=== PATIENT | female | born 1950 | race Caucasian/White ===

== ENCOUNTER 2018-03-04 06:22 | Observation (INO) ==
[2018-03-04 06:41] LABS: Baso % (Auto) 0.6 % (0.0-2.0); Eos # (Auto) 0.1 th/mm3 (0.0-0.4); Hematocrit 40.9 % (35.0-46.0); Hemoglobin 13.9 gm/dL (11.6-15.3); Lymph # (Auto) 1.3 th/mm3 (1.0-4.8); Lymph % (Auto) 32.5 % (9.0-44.0); Mean Corpuscular HGB Conc 34.1 % (32.0-36.0); Mean Corpuscular Hemoglobin 32.5 pg (27.0-34.0); Mean Corpuscular Volume 95.4 fL (80.0-100.0); Mono # (Auto) 0.4 th/mm3 (0.0-0.9); Mono % (Auto) 9.5 % (0.0-8.0); Neut # (Auto) 2.3 th/mm3 (1.8-7.7); Neut % (Auto) 55.4 % (16.0-70.0); Platelet Count 245 th/mm3 (150-450); Red Blood Count 4.29 mil/mm3 (4.00-5.30); Red Cell Distribution Width 12.4 % (11.6-17.2); White Blood Count 4.1 th/mm3 (4.0-11.0)
--- NOTE | 2018-03-04 06:41 | ED ---
HPI General Chief Complaint: Chest Pain Stated Complaint: chest pain Time Seen by Provider: 03/04/18 06:28 Source: patient Mode of arrival: ambulatory Limitations: no limitations History of Present Illness HPI narrative: 67-year-old female presents to the emergency department by private transportation the care of her spouse for complaint of retrosternal chest pain dull and aching with heaviness radiating into her back with sharp mid scapular pain. No neck jaw shoulder arm pain. Patient had associated shortness of breath sweats and nausea. Patient denies vomiting or abdominal pain. 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 Patient no longer smokes cigarettes does have history of COPD after 36 years of tobacco use. No report of premature onset heart disease in her family. Family history of PE and cancer. MD complaint: chest pain STEMI Alert: No Onset (ago): hour(s) Duration: constant Onset: during rest Pain location: substernal Severity: severe Severity scale (1-10): 7 Quality: tightness, aching and heaviness Pain radiation: back (sharp) Relieving factors: nothing and other (alkaseltzer) Exacerbating factors: exertion and inspiration Context: other (none) Associated symptoms: nausea, diaphoresis and dyspnea Treatments prior to arrival chest pain: other (fay-seltzer) Related Data On Oral Contraceptives: No Home Medications Medication Instructions Recorded Confirmed biotin 10,000 mcg PO DAILY 03/04/18 03/04/18 budesonide-formoterol [Symbicort] 2 puff INHALATION BID 03/04/18 03/04/18 bupropion HCl [Wellbutrin SR] 150 mg PO BID 03/04/18 03/04/18 losartan 100 mg PO DAILY 03/04/18 03/04/18 pravastatin [Pravachol] 40 mg PO DAILY 03/04/18 03/04/18 triamterene-hydrochlorothiazid 1 cap PO DAILY 03/04/18 03/04/18 Allergies Allergy/AdvReac Type Severity Reaction Status Date / Time naproxen Allergy Intermediate Facial Verified 03/04/18 06:40 Swelling Review of Systems ROS: all other systems reviewed are negative PMFSH History History Provided By: Patient (Brain bleed 2003 without surgical intervention pulmonary embolism 1978 COPD associated with previous tobacco use hypertension dyslipidemia) Medical History Medical History Brain bleed (Acute) COPD (chronic obstructive pulmonary disease) (Acute) Hypertension (Acute) Pulmonary embolism (Acute) Social History Social History Substance History: No History of Abuse Smoking Status: Former smoker Tobacco Type: Cigarettes How Often Do You Have a Drink Containing Alcohol: Never Recent Travel in [facility] within the Last 8 Weeks: No Recent Out of Country Travel within the Last 8 Weeks: No Exam Narrative Exam Narrative: GENERAL: Well-nourished, well-developed patient. In apparent discomfort with shortness of breath no stridor or hoarseness; GCS 15. SKIN: Focused skin assessment warm/dry. HEAD: Normocephalic. EYES: No scleral icterus. No injection or drainage. NECK: Supple, trachea midline. No JVD or lymphadenopathy. CARDIOVASCULAR: Regular rate and rhythm without murmurs, gallops, or rubs. Bilateral radial and dorsalis pedis pulses 2+ to palpation. RESPIRATORY: Breath sounds equal bilaterally. No accessory muscle use. GASTROINTESTINAL: Abdomen soft, mild epigastric tenderness to direct palpation without guarding or rebound, nondistended. No palpable pulsatile mass. MUSCULOSKELETAL: No cyanosis, or edema. BACK: Nontender without obvious deformity. No CVA tenderness. Course Initial Documented Vital Signs Temperature 98.1 F 03/04/18 06:24 Pulse Rate 81 03/04/18 06:24 Respiratory Rate 18 03/04/18 06:24 Blood Pressure 135/88 03/04/18 06:24 Pulse Oximetry 97 03/04/18 06:24 Last Documented Vital Signs Temperature 98.1 F 03/04/18 06:24 Pulse Rate 72 03/04/18 08:27 Respiratory Rate 16 03/04/18 08:27 Blood Pressure 107/60 03/04/18 08:27 Pulse Oximetry 94 L 03/04/18 08:27 Sign Out Sign Out Data: Patient Sign Out occurred on 03/04/18 at 08:10. Patient's care was discussed, and care was transferred from Sara Vargas MD to Elizabeth Sánchez. Sign Out Comment: care signed over to Dr Sánchez 67 f cp to midscapular pain sob sweats nausea 7/10 down to 4/10 after sl ntg x 3 CTA t/a ordered trop ck pending --will need admit; card risk prior tobacco htn high cholesterol also prior 1977 pe and 2003 posterior ICH Last updated by Sara Vargas MD at 03/04/18 07:01 Post-Handoff Eval: Received patient in signout, patient currently cp free. 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 I did review all findings as well as no findings with the patient in detail, patient is currently chest pain-free while in the emergency room, plan to admit her to the hospital for ACS rule out. 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 Sutton. case reviewed with Dr. Antonio Viramontes who accepts pt to service Medical Decision Making MDM Narrative Medical decision making narrative: 67-year-old female presents to the emergency department for complaint of severe retrosternal chest pain with heaviness and tightness associated with shortness of breath and sweats with nausea and referred pain to the mid back sharp in nature unable to obtain symptom relief after taking Fay-Bonham feels like indigestion. Cardiac risk factors female age 67 hypertension dyslipidemia remote tobaccoism Patient placed immediately on personnel monitor with continuous pulse oximetry IV access obtain EKG performed which is non-normal sinus rhythm rate of [address] elevation no acute injury pattern no ectopy artifact present at baseline; patient given bolus of normal saline aspirin weight-based 162 mg patient has allergy to Naprosyn but can take aspirin and took Fay-Bonham prior to arrival to the emergency department. Patient also ordered sublingual nitroglycerin to be administered 0.4 mg every 5 minutes as needed for chest pain and to hold for systolic pressure less than or equal to 100 mmHg or if pain -free. Will obtain LFTs and lipase as well as cardiac enzymes. Will monitor closely for patient's response to nitroglycerin and administer as needed antiemetic and possible narcotic pain medication for symptom relief. Right arm blood pressure 127/62 left arm blood pressure 140/77 Medical Screen Exam Complete: Yes Emergency Medical Condition: Yes Differential Diagnosis Differential Diagnosis: Chest pain ACS myocardial infarction aortic dissection aneurysm pulmonary embolism cholecystitis pancreatitis peptic ulcer disease perforated viscus Medical Records Medical records reviewed: Yes I reviewed the patient's medical records. Lab Data Result diagrams: 03/04/18 06:30 03/04/18 06:30 Lab Results 03/04/18 03/04/18 03/04/18 Range/Units 06:30 06:30 06:30 CBC w Diff Auto diff final WBC 4.1 (4.0-11.0) th/mm3 RBC 4.29 (4.00-5.30) mil/mm3 Hgb 13.9 (11.6-15.3) gm/dL Hct 40.9 (35.0-46.0) % MCV 95.4 (80.0-100.0) fL MCH 32.5 (27.0-34.0) pg MCHC 34.1 (32.0-36.0) % RDW 12.4 (11.6-17.2) % Plt Count 245 (150-450) th/mm3 MPV 7.0 (7.0-11.0) fL Neut % (Auto) 55.4 (16.0-70.0) % Lymph % (Auto) 32.5 (9.0-44.0) % Howell % (Auto) 9.5 H (0.0-8.0) % Eos % (Auto) 2.0 (0.0-4.0) % Baso % (Auto) 0.6 (0.0-2.0) % Neut # (Auto) 2.3 (1.8-7.7) th/mm3 Lymph # (Auto) 1.3 (1.0-4.8) th/mm3 Howell # (Auto) 0.4 (0.0-0.9) th/mm3 Eos # (Auto) 0.1 (0.0-0.4) th/mm3 Baso # (Auto) 0.0 (0.0-0.2) th/mm3 WBC Differential . Differential Comment . PT 10.0 (9.8-11.6) sec INR 1.0 Ratio APTT 22.9 L (24.3-30.1) sec Sodium (136-145) meq/L Potassium (3.5-5.1) meq/L Chloride (98-107) meq/L Carbon Dioxide (21.0-32.0) meq/L Anion Gap (5-15) meq/L BUN (7-18) mg/dL Creatinine (0.50-1.00) mg/dL Estimated GFR (>89) mL/min POC Glucose (68-110) mg/dl Random Glucose (74-106) mg/dL Calcium (8.5-10.1) mg/dL Magnesium (1.5-2.5) mg/dL Total Bilirubin (0.2-1.0) mg/dL AST (15-37) U/L ALT (10-53) U/L Alkaline Phosphatase (45-117) U/L Total Creatine Kinase (26-192) U/L CK-MB (CK-2) (0.5-3.6) ng/mL Troponin I (0.02-0.05) ng/mL Total Protein (6.4-8.2) g/dL Albumin (3.4-5.0) g/dL Lipase 214 (73-393) U/L Blood Type Blood Type Recheck Antibody Screen 03/04/18 03/04/18 03/04/18 Range/Units 06:30 06:45 06:55 CBC w Diff WBC (4.0-11.0) th/mm3 RBC (4.00-5.30) mil/mm3 Hgb (11.6-15.3) gm/dL Hct (35.0-46.0) % MCV (80.0-100.0) fL MCH (27.0-34.0) pg MCHC (32.0-36.0) % RDW (11.6-17.2) % Plt Count (150-450) th/mm3 MPV (7.0-11.0) fL Neut % (Auto) (16.0-70.0) % Lymph % (Auto) (9.0-44.0) % Howell % (Auto) (0.0-8.0) % Eos % (Auto) (0.0-4.0) % Baso % (Auto) (0.0-2.0) % Neut # (Auto) (1.8-7.7) th/mm3 Lymph # (Auto) (1.0-4.8) th/mm3 Howell # (Auto) (0.0-0.9) th/mm3 Eos # (Auto) (0.0-0.4) th/mm3 Baso # (Auto) (0.0-0.2) th/mm3 WBC Differential Differential Comment PT (9.8-11.6) sec INR Ratio APTT (24.3-30.1) sec Sodium 137 (136-145) meq/L Potassium 4.0 (3.5-5.1) meq/L Chloride 101 (98-107) meq/L Carbon Dioxide 28.3 (21.0-32.0) meq/L Anion Gap 8 (5-15) meq/L BUN 18 (7-18) mg/dL Creatinine 0.88 (0.50-1.00) mg/dL Estimated GFR 64 L (>89) mL/min POC Glucose 116 H (68-110) mg/dl Random Glucose 100 (74-106) mg/dL Calcium 8.4 L (8.5-10.1) mg/dL Magnesium 2.0 (1.5-2.5) mg/dL Total Bilirubin 0.2 (0.2-1.0) mg/dL AST 21 (15-37) U/L ALT 29 (10-53) U/L Alkaline Phosphatase 56 (45-117) U/L Total Creatine Kinase 104 (26-192) U/L CK-MB (CK-2) 1.7 (0.5-3.6) ng/mL Troponin I Less than 0.02 L (0.02-0.05) ng/mL Total Protein 7.1 (6.4-8.2) g/dL Albumin 3.7 (3.4-5.0) g/dL Lipase (73-393) U/L Blood Type B Positive Blood Type Recheck Required Antibody Screen Negative Imaging Data Radiologist's impression: Chest X-Ray 03/04/18 06:29 CONCLUSION: COPD Left hilar granulomatous calcification No evidence of acute process. Thoracic Aorta CT 03/04/18 06:54 CONCLUSION: 1. No evidence of thoracoabdominal aortic aneurysm or dissection. 2. Moderate calcified plaque in the infrarenal abdominal aorta. 3. 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 No other significant vascular abnormality. 5. No evidence of acute cardiopulmonary process. 6. Normal appearing soft tissue structures in the abdomen and pelvis. ECG Data EKG Prior to Arrival: No Attestation: I personally reviewed and interpreted this ECG as follows: Prior ECG tracings: not available for review Interpretation: EKG normal sinus rhythm rate 80 normal axis and intervals no acute ST elevation or injury pattern change artifact is present at baseline Discharge Plan Discharge Disposition Patient Disposition: 30 Still Patient Discharge Condition Condition: Stable Discharge Details Diagnosis: Chest pain Physicians Team ED Provider: Elizabeth Sánchez Primary Care Provider: Raine Glynn Rxs /Orders / Referrals /Forms Prescriptions: No Action bupropion HCl [Wellbutrin SR] 150 mg Tablet Extended Release 12 Hr 150 mg PO BID RF: 0 pravastatin [Pravachol] 40 mg Tablet 40 mg PO DAILY RF: 0 triamterene-hydrochlorothiazid 37.5-25 mg Capsule 1 cap PO DAILY RF: 0 losartan 100 mg Tablet 100 mg PO DAILY RF: 0 budesonide-formoterol [Symbicort] 80-4.5 mcg/actuation Hfa Aerosol Inhaler 2 puff INHALATION BID RF: 0 biotin 5,000 mcg Tablet,Disintegrating 10,000 mcg PO DAILY RF: 0 Discharge Instructions Patient Printed Instructions: Chest Pain (ED) Status ED Status: With Doctor
[2018-03-04] MEDS ORDERED: Pantoprazole Inj 40 MG Vial IV.PUSH ONE (06:44)
[2018-03-04] MEDS ORDERED: Morphine Inj 4 MG/ML Vial IV.PUSH ONE (06:48)
[2018-03-04 06:49] LABS: Chloride 101 meq/L (98-107); Sodium 137 meq/L (136-145)
[2018-03-04 06:52] LABS: Calcium 8.4 mg/dL (8.5-10.1)
[2018-03-04 06:53] LABS: Activated Partial Thrombo Time 22.9 sec (24.3-30.1); Albumin 3.7 g/dL (3.4-5.0); Anion Gap 8 meq/L (5-15); Blood Urea Nitrogen 18 mg/dL (7-18); Carbon Dioxide 28.3 meq/L (21.0-32.0); Glucose,Random 100 mg/dL (74-106)
[2018-03-04 06:56] LABS: Alanine Aminotransferase 29 U/L (10-53); Aspartate Aminotransferase 21 U/L (15-37); Glomerular Filtration Rate 64 mL/min (>89)
[2018-03-04 06:58] LABS: Total Protein 7.1 g/dL (6.4-8.2)
[2018-03-04 06:59] LABS: Alkaline Phosphatase 56 U/L (45-117); Creatine Kinase 104 U/L (26-192)
[2018-03-04] MEDS ORDERED: Sodium Chlor 0.9% Inj 500 ML IV.SIG SCH (07:00)
[2018-03-04 07:11] LABS: Creatine Kinase MB 1.7 ng/mL (0.5-3.6)
--- NOTE | 2018-03-04 07:13 | XR ---
EXAM DATE: 03/04/2018 7:10 AM EDT AGE/SEX: 67 years / Female INDICATIONS: Chest pain. CLINICAL DATA: This is the patient's initial encounter. Patient reports that signs and symptoms have been present for 1 day and indicates a pain score of 3/10. MEDICAL/SURGICAL HISTORY: Hypertension. Chronic obstructive pulmonary disease. None. COMPARISON: No prior exams available for comparison. FINDINGS: Lungs are hyperaerated. There is no evidence of acute airspace disease, suspicious nodular densities or effusions. Left hilar gabby calcification is noted. Heart is within normal limits in size. Osseous structures are intact. CONCLUSION: COPD Left hilar granulomatous calcification No evidence of acute process. Electronically signed by: Eric Romano MD 03/04/2018 7:12 AM EDT
--- NOTE | 2018-03-04 07:46 | ECG ---
Date Performed: 03/04/2018 Time Performed: 06:22:46 PTAGE: 67 years EKG: Sinus rhythm NORMAL ECG NO PREVIOUS TRACING DOCTOR: Julio Cesar Boone Interpretating Date/Time 03/04/2018 07:43:46
--- NOTE | 2018-03-04 08:03 | CT ---
EXAM DATE: 03/04/2018 7:47 AM EDT AGE/SEX: 67 years / Female INDICATIONS: Retrosternal chest pain. CLINICAL DATA: This is the patient's initial encounter. Patient reports that signs and symptoms have been present for 1 day and indicates a pain score of 4/10. MEDICAL/SURGICAL HISTORY: Chronic obstructive pulmonary disease. Hypertension. Pulmonary embolism. None. RADIATION DOSE: 15.26 CTDI (mGy) COMPARISON: No prior exams available for comparison. TECHNIQUE: Volumetric scanning was performed using a multi-row detector CT scanner during bolus infu latrell of 90 ml Omnipaque 350 (iohexol) nonionic water-soluble contrast as a single exam dose. The da ta was post processed with a variety of visualization algorithms including full volume maximum intens ity projection, multi-planar sliding thin slab reformation, curved planar reformation, and surface re ndering techniques. Using automated exposure control and adjustment of the mA and/or kV according to patient size, radiation dose was kept as low as reasonably achievable to obtain optimal diagnostic q uality images. DICOM format image data is available electronically for review and comparison. FINDINGS: Lungs: There is no consolidation or pneumothorax. No concerning pulmonary nodule is visualized. No pleural fluid is present. Calcified granuloma is identified in the left lower lobe. Mediastinum: Calcified lymph nodes are seen in the left hilum. No abnormally enlarged lymph nodes by CT criteria. No axillary or other hilar abnormalities are identified. Abdomen: The liver and spleen are free of focal defects. The gallbladder and pancreas demonstrate no abnormality. The adrenal glands are normal. The kidneys demonstrate no evidence of solid renal mass or hydronephrosis. No free fluid or abdominal masses are identified. No para-aortic adenopathy is see n. Pelvis: No evidence of free fluid or pelvic mass. No abnormally enlarged inguinal or retroperitoneal lymph nodes are present. The bladder is unremarkable. Thoracic Aorta: The thoracic aortic root is normal with normal branching of the great vessels. Ther e is no evidence of aneurysm or dissection. Abdominal Aorta: The aorta is normal in caliber without aneurysm or dissection. Moderate calcific at herosclerotic plaque is noted. The renal arteries are patent bilaterally. Celiac artery is occluded at its origin. Adequate collateral flow is identified extending from the SMA to the celiac arterial d istribution. The superior mesenteric arteries is patent and normal in diameter. Pelvic Vessels: The internal iliac and external iliac vessels are patent without aneurysm or stenosi s. CONCLUSION: 1. No evidence of thoracoabdominal aortic aneurysm or dissection. 2. Moderate calcified plaque in the infrarenal abdominal aorta. 3. 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 No other significant vascular abnormality. 5. No evidence of acute cardiopulmonary process. 6. Normal appearing soft tissue structures in the abdomen and pelvis. Electronically signed by: Eric Romano MD 03/04/2018 8:01 AM EDT
--- NOTE | 2018-03-04 09:17 | P.HPIM ---
History of Present Illness Service: Chest pain center Primary Care Physician: Raine Glynn MD Chief Complaint: chest pain History of Present Illness: Mrs. Angeles is a 67 yo F with PMH PE (distant in s), brain hemorrhage (no surgical intervention needed; no cause identified), COPD, HTN, hyperlipidemia, prior tobacco abuse who presented to [place] ED with chest pain. Patient states that pain began last night; she felt "bad" at ~2am but went back to sleep. At ~5 am, patient had chest pain below her sternum and radiating to her back which was constant in nature. Patient reported associated feeling "clammy" and nauseous. Patient also had associated 4 episodes of diarrhea. Patient thought at first that her symptoms might be due to indigestion or GERD so took [facility] [place] without improvement. Patient did not report associated shortness of breath. She does not report abdominal pain, abnormal urination, extremity weakness/pain, or other symptoms. Patient denies any recent similar symptoms. She does not have chest pain when exercising. No pain with physical exertion. She reports getting flu shot yesterday. She takes Symbicort chronically for COPD and is doing well. She has not had recent changes in her HTN or hyperlipidemia medications. Patient states she was taken off of aspirin by [facility] in [place] for 2003 brain bleed, but has previously taken without incident. Interval: Seen in ED; stable VS. Initial troponin and EKG reassuring. CTA with mesenteric atherosclerotic disease but collaterals present and no acute vascular events seen. CXR negative. Her pain resolved in ED; she is no longer in pain. Patient admitted to chest pain center for further evaluation. - Diagnosis (1) Chest pain Review of Systems Constitutional: Denies chills, Denies fatigue, Denies fever(s) Eyes: Denies blurry vision, Denies change in vision Ears, Nose, Mouth, and Throat: Denies sinus pressure, Denies sore throat Cardiovascular: Reports chest pain, Denies generalized swelling, Denies shortness of breath with activity Respiratory: Denies shortness of breath, Denies wheezing Gastrointestinal: Reports nausea (this morning), Reports other (diarrhea this morning) Musculoskeletal: Denies back pain, Denies muscle weakness Skin/Breast: Denies dry skin, Denies lesions Neurologic: Denies headache(s), Denies weakness Psychiatric: Denies confusion, Denies depression Hematologic/Lymphatic: Denies easy bleeding, Denies easy bruising PMFSH - History History Provided By: Patient (Brain bleed 2003 without surgical intervention pulmonary embolism 1977 COPD associated with previous tobacco use hypertension dyslipidemia) - Medical History Medical History: Medical History (Last Updated 03/04/18 @ 06:28 by Nancy Enciso RN) Brain bleed COPD (chronic obstructive pulmonary disease) Hypertension Pulmonary embolism - Family History Family History: Family History (Last Updated 03/04/18 @ 10:36 by Antonio Dunn MD) Mother CVA (cerebral vascular accident) Father Lung cancer - Social History I have reviewed the patient's Social History: Yes - Tobacco History Tobacco Use In Past 30 Days: No Smoking Status: Former smoker Tobacco Type: Cigarettes Years Smoked: 36 Smoking End Date: 14 years ago - Alcohol History How Often Do You Have a Drink Containing Alcohol: 4 or more times a week - Substance Use History Substance History: No History of Abuse - Travel History Recent Travel in the [place] Within the Last 8 Weeks: No Recent Travel Out of the Country Within the Last 8 Weeks: No - Immunization History Tetanus Immunization: >5 Years Hx Influenza Vaccine This Season: Yes Medications and Allergies Active Medications: Active Medications Sodium Chloride (Ns Inj) 500 mls @ 0 mls/hr IV.SIG BOLUS LIANA Last Infusion: 03/04/18 07:03 Dose: Infused Sodium Chloride (Ns Flush) 2 ml IV.FLUSH UNSCH PRN PRN Reason: FLUSH AFTER USING IV ACCESS Last Admin: 03/04/18 06:53 Dose: 2 ml Allergies Allergy/AdvReac Type Severity Reaction Status Date / Time naproxen Allergy Intermediate Facial Verified 03/04/18 06:40 Swelling Home Medications Medication Instructions Recorded Confirmed Type biotin 10,000 mcg PO DAILY 03/04/18 03/04/18 History budesonide-formoterol [Symbicort] 2 puff INHALATION BID 03/04/18 03/04/18 History bupropion HCl [Wellbutrin SR] 150 mg PO BID 03/04/18 03/04/18 History losartan 100 mg PO DAILY 03/04/18 03/04/18 History pravastatin [Pravachol] 40 mg PO DAILY 03/04/18 03/04/18 History triamterene-hydrochlorothiazid 1 cap PO DAILY 03/04/18 03/04/18 History Exam Vital signs: Vital Signs 03/04/18 06:24 03/04/18 06:38 03/04/18 06:39 Temperature 98.1 F Pulse Rate 81 Respiratory Rate 18 Blood Pressure 135/88 Blood Pressure [Left Arm] Blood Pressure [Right Arm] Pulse Oximetry 97 98 100 03/04/18 06:47 03/04/18 07:13 03/04/18 08:27 Temperature Pulse Rate 82 72 Respiratory Rate 16 Blood Pressure 107/60 Blood Pressure [Left Arm] 140/77 Blood Pressure [Right Arm] 127/62 Pulse Oximetry 98 94 L Intake & Output 03/03/18 03/04/18 03/04/18 18:59 06:59 18:59 Intake Total 500 / 500 Balance 500 / 500 Weight 68.946 kg Intake: IV 500 / 500 NS Inj 500 ML @ Wide Open IV. 500 / 500 SIG [facility] Rx#:[id number] Narrative: General: No acute distress Eyes: EOM grossly I HENT: Normal mucus membranes Skin: No visible lesions Neck: No appreciated thyromegaly or lymphadenopathy CV: Regular rate and rhythm; normal perfusion Resp: CTAB w/o wheezing; normal rate Chest: some mild tenderness to palpation of sternal area; different in nature from prior pain this morning Abdomen/Back: Normal BS. Epigastric pain to palpation; mild. Ext: Grossly normal ROM and motor function Neuro: Awake/alert. Grossly normal CN. Grossly normal peripheral motor/sensory function Results - Labs CBC & Chem 7: 03/04/18 06:30 03/04/18 06:30 Labs: Short CBC 03/04/18 Range/Units 06:30 WBC 4.1 (4.0-11.0) th/mm3 Hgb 13.9 (11.6-15.3) gm/dL Hct 40.9 (35.0-46.0) % Plt Count 245 (150-450) th/mm3 BMP 03/04/18 06:30 Sodium 137 Potassium 4.0 Chloride 101 Carbon Dioxide 28.3 BUN 18 Creatinine 0.88 Calcium 8.4 L Cardiac Enzymes 03/04/18 Range/Units 06:30 Total Creatine Kinase 104 (26-192) U/L CK-MB (CK-2) 1.7 (0.5-3.6) ng/mL Troponin I Less than 0.02 L (0.02-0.05) ng/mL Liver Function 03/04/18 Range/Units 06:30 Total Bilirubin 0.2 (0.2-1.0) mg/dL AST 21 (15-37) U/L ALT 29 (10-53) U/L Alkaline Phosphatase 56 (45-117) U/L Albumin 3.7 (3.4-5.0) g/dL - Imaging Impressions Chest X-Ray 03/04/18 06:29 CONCLUSION: COPD Left hilar granulomatous calcification No evidence of acute process. Thoracic Aorta CT 03/04/18 06:54 CONCLUSION: 1. No evidence of thoracoabdominal aortic aneurysm or dissection. 2. Moderate calcified plaque in the infrarenal abdominal aorta. 3. 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 No other significant vascular abnormality. 5. No evidence of acute cardiopulmonary process. 6. Normal appearing soft tissue structures in the abdomen and pelvis. Caprini VTE Risk Assessment Caprini VTE Risk Assessment: Moderate/High Risk (score >= 2) Caprini Risk Assessment Model: Point Value = 1 Point Value = 2 Point Value = 3 Point Value = 5 Age 41-60 Minor surgery BMI > 25 kg/m2 Swollen legs Varicose veins or History of unexplained or recurrent spontaneous Oral contraceptives or hormone replacement Sepsis (< 1 month) Serious lung disease, including pneumonia (< 1 month) Abnormal pulmonary function Acute myocardial infarction Congestive heart failure (< 1 month) History of inflammatory bowel disease Medical patient at bed rest Age 61-74 Arthroscopic surgery Major open surgery (> 45 min) Laparoscopic surgery (> 45 min) Malignancy Confined to bed (> 72 hours) Immobilizing plaster cast Central venous access Age >= 75 History of VTE Family history of VTE Factor V Leiden Prothrombin [id number] Lupus anticoagulant Anticardiolipin antibodies Elevated serum homocysteine Heparin-induced thrombocytopenia Other congenital or acquired thrombophilia Stroke (< 1 month) Elective arthroplasty Hip, pelvis, or leg fracture Acute spinal cord injury (< 1 month) Prophylaxis Regimen: Total Risk Factor Score Risk Level Prophylaxis Regimen 0-1 Low Early ambulation 2 Moderate Order ONE of the following: *Sequential Compression Device (SCD) *Heparin 5000 units SQ BID 3-4 Higher Order ONE of the following medications: *Heparin 5000 units SQ TID *Enoxaparin/Lovenox 40 mg SQ daily (WT < 150 kg, CrCl > 30 mL/min) *Enoxaparin/Lovenox 30 mg SQ daily (WT < 150 kg, CrCl > 10-29 mL/min) *Enoxaparin/Lovenox 30 mg SQ BID (WT < 150 kg, CrCl > 30 mL/min) AND/OR *Sequential Compression Device (SCD) 5 or more Highest Order ONE of the following medications: *Heparin 5000 units SQ TID (Preferred with Epidurals) *Enoxaparin/Lovenox 40 mg SQ daily (WT < 150 kg, CrCl > 30 mL/min) *Enoxaparin/Lovenox 30 mg SQ daily (WT < 150 kg, CrCl > 10-29 mL/min) *Enoxaparin/Lovenox 30 mg SQ BID (WT < 150 kg, CrCl > 30 mL/min) AND *Sequential Compression Device (SCD) Assessment and Plan - Assessment (1) Chest pain Code(s): R07.9 - Chest pain, unspecified Status: Acute - Plan Mrs. Angeles is a 67 yo F with: Chest pain Impression: Atypical in nature; resolved in ED. Possible GI component. HTN, COPD/prior tobacco, hyperlipidemia. On home statin, BP control. Patient of Dr. Sutton CTA- no aortic aneurysm/dissection. Moderate calcified plaque in infrarenal abdominal aorta. Occluded celiac artery w/ SMA collateralization. No acute cardiopulmonary process CXR- no acute process -Continue ACS rule out -Initial troponin, EKG normal -Will plan for nuclear stress test after 2nd troponin resulted -s/p ASA 162mg in ED -Will plan to discuss with Cardiology (Dr. Sutton is patient's [facility] ) for consideration of antiplatelet agent for CTA atherosclerotic findings (she was previously held off of ASA by prior [employer] [facility] due to distant brain hemorrhage in 2003 of unknown etiology) -Continue statin, BP control -Continue to monitor vitals, morphine for pain control -Will start H2 for possible esophageal component in association with diarrhea HTN -Continue home thiazide/ARB Hyperlipidemia -Continue home statin History PE -CTA negative COPD -Continue home Symbicort Alcohol use -Will monitor for signs of withdrawal; do not anticipate need for CIWA currently DVT PPX -Bilateral SCD's Addendum Discussed with Cardiology. Patient with reassuring nuclear stress test. She was discharged home to follow-up with her [employer] [facility] as an outpatient. (1) Chest pain Qualifiers: Chest pain type: unspecified Qualified Code(s): R07.9 - Chest pain, unspecified
[2018-03-04] MEDS ORDERED: Acetaminophen 500 MG Tablet PO PRN (10:18)
[2018-03-04] MEDS ORDERED: Sod Chloride 0.9% Inj 1,000 ML IV.CONT SCH (10:30)
[2018-03-04] MEDS ORDERED: Morphine Sulfate Inj 2 MG/ML Vial IV.PUSH PRN (10:45)
[2018-03-04 11:23] LABS: Creatine Kinase 83 U/L (26-192)
[2018-03-04 13:06] VITALS: O2SAT 96
[2018-03-04 14:04] LABS: Creatine Kinase 79 U/L (26-192)
[2018-03-04] MEDS ORDERED: Regadenoson Inj 0.4 MG/5 ML Syringe IV.PUSH ONE (14:32)
--- NOTE | 2018-03-04 15:53 | NM ---
EXAM DATE: 03/04/2018 3:48 PM EDT AGE/SEX: 67 years / Female INDICATIONS:Angina. . Substernal chest pain. CLINICAL DATA: This is the patient's initial encounter. Patient reports that signs and symptoms have been present for 1 day and indicates a pain score of 2/10. MEDICAL/SURGICAL HISTORY: Hypertension. Chronic obstructive pulmonary disease. None. COMPARISON: No prior exams available for comparison. DOSE: 8.1 mCi Tc 99m Myoview at rest 25.6 mCi [id number] at stress 0.4 mg Lexiscan STRESS SYMPTOMS: None. EJECTION FRACTION: >70 % TECHNIQUE: The patient underwent pharmacologic stress with infusion of prescribed dose. Continuous ECG tracing was monitored during stress. Gated SPECT imaging was performed after stress and conventi onal SPECT imaging was performed at rest. The examination was performed on a SPECT/CT scanner, both attenuation and non-corrected datasets were reviewed. FINDINGS: Distribution: The maximum perfused segment at stress is in the lateral wall. Perfusion Study: The pattern of perfusion at stress is within normal limits. Gated Study: There are intact wall motion and wall thickening without hypokinetic or dyskinetic segm ents. The ejection fraction is calculated at >70%. RISK CATEGORY: Low (<1% Annual Motality Rate) CONCLUSION: 1. Negative examination. 2. No evidence of fixed or reversible perfusion abnormalities. 3. Well-preserved ejection fraction and wall motion. Electronically signed by: Eric Romano MD 03/04/2018 3:51 PM EDT
[2018-03-04 16:36] VITALS: BP 135/59; PULSE 77; RESP 19; TEMP 97.5
[2018-03-04] MEDS ORDERED: Famotidine 20 MG Tablet PO SCH (21:00)
[2018-03-04] MEDS ORDERED: Budesonide-Formoterol 80/4.5 MCG 6.9 GM Inhaler INH SCH (21:00)
[2018-03-04] MEDS ORDERED: buPROPion 150 MG 12 HR Tablet PO SCH (21:00)
--- NOTE | 2018-03-05 10:16 | TR ---
Date Performed: 03/04/2018 Time Performed: 14:52:38 DOCTOR: Brayan Yi DRUG LIST: CLINICAL HISTORY: REASON FOR TEST: DIGITAL ACCOUNT COORDINATOR REASON FOR ENDING: OBSERVATION: CONCLUSION: COMMENTS: Lexiscan stress test was performed under standard four minute protocol. Radionuclide was injected one minute prior to ending the test. No electrocardiographic abormalities were present t o suggest ischemia. Nuclear imaging and interpretation are pending.
--- NOTE | 2018-03-05 22:20 | ECG ---
Date Performed: 03/04/2018 Time Performed: 13:32:08 PTAGE: 67 years EKG: Sinus rhythm NORMAL ECG PREVIOUS TRACING : 03/04/2018 10.54 DOCTOR: Samuel Knott Interpretating Date/Time 03/05/2018 22:13:43
--- NOTE | 2018-03-05 22:24 | ECG ---
Date Performed: 03/04/2018 Time Performed: 10:54:36 PTAGE: 67 years EKG: Sinus rhythm NORMAL ECG PREVIOUS TRACING : 03/04/2018 06.22 DOCTOR: Samuel Knott Interpretating Date/Time 03/05/2018 22:15:18
== END 2018-03-04 17:59 | disposition home or self-care (01) ==
LOC: PHED 06:22 → PHEDA 06:22 → PH3 09:20
PROVIDERS: ADMIT Family Medicine; ATTEND Family Medicine